=== PATIENT | male | born 1960 | race Caucasian/White ===

== ENCOUNTER 2018-05-07 07:19 | Day surgery (SDC) | payer OTHER ==
[~2018-05-07] VITALS: Ht 190.5 cm; Wt 105.2 kg
[~2018-05-07 07:19] MED LIST: AMIT25; AMLO10; BUPROPION HCL200 MG; CHLO25B; Mobic15 MG; PANT40; SIMV40
== END 2018-05-07 09:33 | disposition home or self-care (01) ==
LOC: ORSCSDS 07:19
PROVIDERS: Internal Medicine Gastroenterology
PROC: 0DJD8ZZ Inspection of Lower Intestinal Tract, Via Natural or Artificial Opening Endoscopic (ICD-10-PCS; principal; 2018-05-07 08:45)
DX: Z12.11 Encounter for screening for malignant neoplasm of colon (principal); K21.9 Gastro-esophageal reflux disease without esophagitis; E78.00 Pure hypercholesterolemia, unspecified; Z87.891 Personal history of nicotine dependence; Z79.82 Long term (current) use of aspirin; Z79.899 Other long term (current) drug therapy

== ENCOUNTER 2023-05-20 12:45 | Day surgery (SDC) | payer OTHER ==
[~2023-05-20] VITALS: Ht 190.5 cm; Wt 103.8 kg
--- NOTE | 2023-05-20 13:49 | NUR ---
05/20/23 Idalia Wolf PRE-OP AFRIN SPRAYS NOT ABLE TO BE GIVEN IN PRE-OP BEFORE ANESTHESIA CAME TO TAKE PATIENT TO OR, ALERTED DR SHERIDAN. PER DR SHERIDAN THE AFRIN NASAL SPRAYS WILL BE GIVEN IN THE OR.
--- NOTE | 2023-05-20 15:02 | NUR ---
05/20/23 1502 Tori Ni 2 SPRAYS OF AFRIN ADMINISTERED IN EACH NOSTRIL AT ROOM TIME OF 1346 BY RODERICK LEE. THE REMAINING AFRIN WAS POURED ONTO THE FIELD AND USED TO SOAK PLEDGETS FOR NASAL PACKING BY DR SHERIDAN.
--- NOTE | 2023-05-20 16:16 | NUR ---
05/20/23 1616 Haritha Hernandez GAVE REPORT TO JESUS CRUZ AT 1615. PT IS NOW C/O 4/10 PAIN AT OPERATIVE SITE. PT IS ABLE TO TOLERATE EATING AND DRINKING WITH NO ISSUES. VSS.
[2023-05-20 16:19] VITALS: BP 145/95
== END 2023-05-20 16:46 | disposition home or self-care (01) ==
LOC: ORSCSDS 12:45
PROVIDERS: Otolaryngology
PROC: 09TL0ZZ Resection of Nasal Turbinate, Open Approach (ICD-10-PCS; principal; 2023-05-20 14:45)
PROC: 09BM0ZZ Excision of Nasal Septum, Open Approach (ICD-10-PCS; principal; 2023-05-20 14:45)
DX: J31.0 Chronic rhinitis (principal); R09.81 Nasal congestion; J34.2 Deviated nasal septum; J34.3 Hypertrophy of nasal turbinates; I10 Essential (primary) hypertension; E78.00 Pure hypercholesterolemia, unspecified; K21.9 Gastro-esophageal reflux disease without esophagitis; Z87.891 Personal history of nicotine dependence; Z79.899 Other long term (current) drug therapy
CPT/HCPCS: A9270; J0690; J1100; J2250; J2405; J2704; J3010; J7120